=== PATIENT | female | born 1990 | race African-American/Black ===

== ENCOUNTER 2016-12-23 10:43 | Emergency (ER) | payer SELFPAY ==
[~2016-12-23] VITALS: Ht 170.2 cm; Wt 74.8 kg
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
--- NOTE | 2016-12-23 11:52 | NUR ---
PT TO XRAY
[2016-12-23 13:01] VITALS: BP 124/78
--- NOTE | 2016-12-23 13:02 | NUR ---
PT FORGOT TO SIGN, LEFT AFTER TREATMENT AND SPEAKING WITH MD. PT STABLE.
== END 2016-12-23 13:03 | disposition home or self-care (01) ==
LOC: ER 10:47
DX: S60.212A Contusion of left wrist, initial encounter (principal); V89.2XXA Person injured in unspecified motor-vehicle accident, traffic, initial encounter; Y93.89 Activity, other specified; Y92.89 Other specified places as the place of occurrence of the external cause; Y99.9 Unspecified external cause status
CPT/HCPCS: 73110; A4606; Z7610